=== PATIENT | female | born 1995 | race Two or more races ===

== ENCOUNTER 2023-05-01 08:55 | Outpatient (REF) | payer OTHER, SELFPAY ==
--- NOTE | ~2023-05-01 | MR_ITS ---
EXAMINATION: MR CERVICAL SPINE WITHOUT CONTRAST CLINICAL INFORMATION: 27-year-old with self-reported right-sided muscle spasms that radiates to the face, exacerbated by stress or working. Right-sided the radicular pain. COMPARISON: None available. TECHNIQUE: MRI of the cervical spine was obtained using routine sequences without contrast. FINDINGS: Alignment: Normal. No spondylolisthesis or retrolisthesis. Craniocervical Junction/C1-C2 Articulations: Intact and aligned. Visualized Intracranial Structures: Within normal limits. Vertebral Bodies: Vertebral body heights are well-maintained. Disc Spaces and Endplates: The intervertebral disc space heights are well-maintained. No significant spondylosis. Endplates appear intact. Bone Marrow: No significant marrow-replacing process or bone marrow edema. C2-C3: Tiny central disc protrusion without cord impingement or canal stenosis. No DJD, canal or neuroforaminal stenosis. C3-C4: Tiny central disc protrusion with slight indentation of the ventral thecal sac without cord impingement or canal stenosis. No DJD or neuroforaminal stenosis. C4-C5: Small shallow central disc protrusion with slight indentation of the ventral thecal sac without cord impingement or canal stenosis. No DJD or neuroforaminal stenosis. C5-C6: Very small central disc protrusion, with mild indentation of the ventral thecal sac without cord impingement or canal stenosis. No DJD or neuroforaminal stenosis. C6-C7: Shallow central to left paramedian disc osteophyte complex noted with slight flattening the ventral dural sac on the left without cord impingement, neural impingement or canal stenosis. No significant DJD or neuroforaminal stenosis. C7-T1: No disc herniation or canal stenosis. No DJD or neuroforaminal stenosis. T1-T2: Tiny left paramedian to disc protrusion without neural impingement. No DJD, canal or neuroforaminal stenosis. Spinal Cord: The cervical and visualized upper thoracic spinal cord is normal in morphology, caliber and signal intensity throughout. Extracranial Soft Tissues: The visualized extracranial head/neck soft tissues are unremarkable within the limitations of the study. Signal voids are seen in the visualized major arterial and venous structures in the neck. No prevertebral soft tissue swelling. MR/MR cervical spine wo con IMPRESSION: 1. Normal spinal alignment. 2. Multilevel very small central disc protrusions without cord impingement or canal stenosis. 3. Shallow central to left paramedian disc osteophyte complex at C6-C7 without cord impingement. 4. No significant DJD or neuroforaminal stenosis.
== END 2023-05-01 08:56 | disposition home or self-care (01) ==
LOC: HO.MRI 08:55
PROVIDERS: PCP Pediatrics; Visit Provider Family Medicine Sports Medicine
DX: M54.12 Radiculopathy, cervical region (principal); M54.31 Sciatica, right side
CPT/HCPCS: 72141